=== PATIENT | male | born 1995 | race Caucasian/White ===

== ENCOUNTER 2018-09-11 11:27 | Emergency (ER) | payer OTHER ==
[~2018-09-11] VITALS: Ht 182.9 cm; Wt 63.5 kg
[2018-09-11 11:33] VITALS: BP_SYST 136
[2018-09-11 11:40] VITALS: BP_SYST 136
== END 2018-09-11 11:40 ==
LOC: SED 11:27
DX: Z02.83 Encounter for blood-alcohol and blood-drug test (principal)

== ENCOUNTER 2019-04-13 22:42 | Emergency (ER) | payer OTHER ==
[~2019-04-13] VITALS: Ht 167.6 cm; Wt 45.4 kg
--- NOTE | 2019-04-13 22:47 | NUR ---
Patient to ER chair [address] to gown for evaluation. Side rails up. Report given to Elizabeth BENNETT.
[2019-04-13 22:48] VITALS: BP_SYST 125
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
--- NOTE | 2019-04-13 23:02 | NUR ---
Written and verbal consent obtained from patient for blood alcohol, name and verified by patient. Disinfected patient's skin with that did not contain alcohol or other volatile organic compound. Collected the blood from the subject named by venipuncture, in the presence of Officer from [facility] . Used a sterile, dry hypodermic needle and dry vacuum blood collection. Two dry vacuum blood collection was supplied by the officer named above. Withdrew a specimen of blood from of the subject named above. Inverted both blood tube several times to ensure that the preservative and anticoagulant were thoroughly mixed in the blood specimen. I initialed both blood tube label for identification. The labeled blood tubes was handed directly to the Officer named above. The blood tubes stopper remained in place while I had possession of the blood tubes. The Officer placed tubes into envelope and sealed it in my presence. Envelope initialed by myself and Officer named above. Patient tolerated well, bandage applied, and bleeding controlled.
--- NOTE | 2019-04-13 23:22 | NUR ---
ER Dr. Leon at bedside examining patient.
[2019-04-13 23:32] VITALS: BP_SYST 125
--- NOTE | 2019-04-13 23:34 | NUR ---
Patient given written and verbal discharge instructions and verbalizes understanding. ER MD discussed with patient the results and treatment provided. Patient in stable condition. ID arm band removed. No Rx given. Patient educated on pain management and to follow up with PMD. Pain Scale 0/10. Opportunity for questions provided and answered. Medication side effect fact sheet provided.
== END 2019-04-13 23:34 ==
LOC: SED 22:42
DX: F10.129 Alcohol abuse with intoxication, unspecified (principal); M25.512 Pain in left shoulder; V47.5XXA Car driver injured in collision with fixed or stationary object in traffic accident, initial encounter; Y93.89 Activity, other specified; Y92.488 Other paved roadways as the place of occurrence of the external cause; Y99.8 Other external cause status
CPT/HCPCS: 99283